=== PATIENT | female | born 1995 | race African-American/Black ===

== ENCOUNTER 2017-05-31 04:36 | Emergency (ER) | payer OTHER ==
[~2017-05-31] VITALS: Ht 165.1 cm; Wt 77.1 kg
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
[2017-05-31] MEDS ORDERED: ACETAMINOPHEN 325 MG TABLET. PO ONE (06:00)
[2017-05-31] MEDS ORDERED: LIDOCAINE 1%/EPI 1:100,000 20 ML VIAL. INJ ONE (06:00)
[2017-05-31 06:04] VITALS: BP 138/84
[2017-05-31] MEDS ORDERED: DIPHTH,PERTUSS(ACELL),TET TOX 0.5 ML DISP.SYRIN. VAX IM ONE (06:30)
== END 2017-05-31 06:23 | disposition home or self-care (01) ==
LOC: ER 04:36
DX: S01.81XA Laceration without foreign body of other part of head, initial encounter (principal); M25.562 Pain in left knee; Y04.2XXA Assault by strike against or bumped into by another person, initial encounter; Y93.89 Activity, other specified; Y99.8 Other external cause status; Y92.511 Restaurant or cafe as the place of occurrence of the external cause
CPT/HCPCS: 12013; 90471; 90715; 99283; J3490